=== PATIENT | male | born 1940 | race Caucasian/White ===

== ENCOUNTER 2018-01-15 08:58 | Emergency (ER) | payer MEDICARE, BC ==
[2018-01-15] MEDS ORDERED: FINA5TAB67 PO (09:09)
[2018-01-15] MEDS ORDERED: DOXA4TAB58 PO (09:09)
[2018-01-15] MEDS ORDERED: TAMS0.4C70 PO (09:09)
[2018-01-15] MEDS ORDERED: LISI-351 PO (09:09)
[2018-01-15] MEDS ORDERED: PHENAZOPYRIDINE 200 MG TAB PO ONE (09:25)
[2018-01-15 09:30] VITALS: BP 122/63
[2018-01-15] MEDS ORDERED: CEPH-13 PO (09:37)
[2018-01-15] MEDS ORDERED: PHEN200T32 PO (09:37)
--- NOTE | 2018-01-15 09:38 | ER Report ---
History and Physical Time Seen By MD: 09:33 Hx. of Stated Complaint: BURNING WITH URINATION X 1 WEEK. HPI/ROS CHIEF COMPLAINT: Dysuria 1 week HISTORY OF PRESENT ILLNESS: Patient is a pleasant 77-year-old male who is here for homecoming currently resides in [place]. Patient states she's been having some dysuria with urination over the past 5-7 days. No fevers or chills no abdominal pain he does report occasional flank pain. No history of similar episodes in the past patient does have a benign prostatic hypertrophy he's also had a biopsy which was negative for malignancy. Also recent history of diarrhea causing irritation to the rectal area and subsequent fungal infection.] REVIEW OF SYSTEMS: Respiratory: No cough, no dyspnea. Cardiovascular: No chest pain, no palpitations. Gastrointestinal: No vomiting, no abdominal pain. : Dysuria, no hematuria Allergies: Coded Allergies: No Known Drug Allergies (Unverified , 01/15/18) Home Meds Active Scripts Cephalexin (KEFLEX) 500 Mg Capsule, 500 MG PO Q6H, #20 CAP 0 Refills TAKE ONE CAPSULE BY MOUTH EVERY SIX HOURS Prov:SACHIN GILMORE MD 01/15/18 Phenazopyridine Hcl (PHENAZOPYRIDINE HCL) 200 Mg Tablet, 200 MG PO TID for dysuria, #6 TAB 0 Refills Prov:SACHIN GILMORE MD 01/15/18 Reported Medications Finasteride (FINASTERIDE) 5 Mg Tablet, 5 MG PO QDAY 01/15/18 Tamsulosin Hcl (TAMSULOSIN HCL) 0.4 Mg Cap.er.24h, 0.4 MG PO DAILY, CAP 01/15/18 Lisinopril/Hydrochlorothiazide (LISINOPRIL-HCTZ 10-12.5 MG TAB) 1 Each Tablet, 1 EACH PO 01/15/18 Doxazosin Mesylate (DOXAZOSIN MESYLATE) 4 Mg Tablet, 4 MG PO QDAY 01/15/18 Past Medical/Surgical History Hypertension, BPH Constitutional Vital Sign - Last 24 Hours 01/15/18 01/15/18 01/15/18 01/15/18 08:58 09:04 09:09 09:13 Temp 97.5 Pulse ??? 80 73 Resp 16 B/P (MAP) 152/62 (92) 152/62 Pulse Ox 94 92 O2 Delivery Room Air 01/15/18 01/15/18 01/15/18 09:28 09:30 09:43 Pulse 72 76 B/P (MAP) 122/63 (82) Pulse Ox 93 92 Physical Exam General Appearance: The patient is alert, has no immediate need for airway protection and no current signs of toxicity. Eyes: Pupils equal and round no injection. Respiratory: Chest is non tender, lungs are clear to auscultation. Cardiac: regular rate and rhythm Gastrointestinal: Abdomen is soft and non tender, no masses, bowel sounds normal. Musculoskeletal: Neck: Neck is supple and non tender. Medical Decision Making Data Points Laboratory Hematology Test 01/15/18 09:07 Urine Color Yellow Urine Clarity Clear Urine pH 5.0 pH (4.8-9.5) Urine Specific [place] 1.018 Urine Protein Negative mg/dL (NEGATIVE) Urine Glucose (UA) Negative mg/dL (NEGATIVE) Urine Ketones Negative mg/dL (NEGATIVE) Urine Blood Negative (NEGATIVE) Urine Nitrite Negative (NEGATIVE) Urine Bilirubin Negative (NEGATIVE) Urine Urobilinogen Negative mg/dL (0.2-1.9) Urine Leukocyte Esterase Negative (NEGATIVE) Urine RBC 1 /HPF (0-2/HPF) Urine WBC None /HPF (0-5/HPF) Urine Squamous Epithelial Cells Few /LPF (</=FEW) Urine Transitional Epithelial Cells Few /LPF (NONE-FEW) Urine Bacteria Negative /HPF (NONE-FEW) Urine Mucus None /HPF (NONE-FEW) Chemistry Test 01/15/18 09:07 Urine Color Yellow Urine Clarity Clear Urine pH 5.0 pH (4.8-9.5) Urine Specific [place] 1.018 Urine Protein Negative mg/dL (NEGATIVE) Urine Glucose (UA) Negative mg/dL (NEGATIVE) Urine Ketones Negative mg/dL (NEGATIVE) Urine Blood Negative (NEGATIVE) Urine Nitrite Negative (NEGATIVE) Urine Bilirubin Negative (NEGATIVE) Urine Urobilinogen Negative mg/dL (0.2-1.9) Urine Leukocyte Esterase Negative (NEGATIVE) Urine RBC 1 /HPF (0-2/HPF) Urine WBC None /HPF (0-5/HPF) Urine Squamous Epithelial Cells Few /LPF (</=FEW) Urine Transitional Epithelial Cells Few /LPF (NONE-FEW) Urine Bacteria Negative /HPF (NONE-FEW) Urine Mucus None /HPF (NONE-FEW) Urinalysis Test 01/15/18 09:07 Urine Color Yellow Urine Clarity Clear Urine pH 5.0 pH (4.8-9.5) Urine Specific [place] 1.018 Urine Protein Negative mg/dL (NEGATIVE) Urine Glucose (UA) Negative mg/dL (NEGATIVE) Urine Ketones Negative mg/dL (NEGATIVE) Urine Blood Negative (NEGATIVE) Urine Nitrite Negative (NEGATIVE) Urine Bilirubin Negative (NEGATIVE) Urine Urobilinogen Negative mg/dL (0.2-1.9) Urine Leukocyte Esterase Negative (NEGATIVE) Urine RBC 1 /HPF (0-2/HPF) Urine WBC None /HPF (0-5/HPF) Urine Squamous Epithelial Cells Few /LPF (</=FEW) Urine Transitional Epithelial Cells Few /LPF (NONE-FEW) Urine Bacteria Negative /HPF (NONE-FEW) Urine Mucus None /HPF (NONE-FEW) ED Course/Re-evaluation ED Course 01/15/2018 9:35:37 am urinalysis negative for infection at this time the patient still symptomatic. We'll treat with pyridium and call in a prescription for same. Because patient is visiting I will send with the handwritten prescription for Keflex 500 mg 4 times a day for 5 days if symptoms worsen we'll also direct him to follow-up with his primary care provider if symptoms worsen. I addition to urinalysis and urine culture was also sent. Decision to Disposition Date: Jan 15, 2018 Decision to Disposition Time: 09:36 Depart Departure Latest Vital Signs Vital Signs Date Time Temp Pulse Resp B/P (MAP) Pulse Ox O2 Delivery O2 Flow Rate FiO2 01/15/18 09:43 76 92 01/15/18 09:30 122/63 (82) 01/15/18 09:09 97.5 16 Room Air Impression: Primary Impression: Dysuria Condition: Improved Disposition: HOME OR SELF-CARE New Scripts Cephalexin (KEFLEX) 500 Mg Capsule 500 MG PO Q6H, #20 CAP 0 Refills TAKE ONE CAPSULE BY MOUTH EVERY SIX HOURS Prov: SACHIN GILMORE MD 01/15/18 Phenazopyridine Hcl (PHENAZOPYRIDINE HCL) 200 Mg Tablet 200 MG PO TID for dysuria, #6 TAB 0 Refills Prov: SACHIN GILMORE MD 01/15/18 Patient Instructions: Dysuria (ED) SACHIN GILMORE MD Jan 15, 2018 09:38
== END 2018-01-15 11:21 | disposition home or self-care (01) ==
LOC: ER 09:26
DX: R30.0 Dysuria (principal)
CPT/HCPCS: 81001; 87088; 99283; A9270; 96360; 96361